=== PATIENT | male | born 1970 | race Two or more races ===

== ENCOUNTER → 2023-07-04 | Emergency (ER) | payer OTHER ==
[~2023-07-04] VITALS: Ht 195.6 cm; Wt 154.2 kg
== END | disposition designated cancer center or children's hospital (05) ==
LOC: ER 16:18
DX: N49.2 Inflammatory disorders of scrotum (principal); R59.0 Localized enlarged lymph nodes; Z20.822 Contact with and (suspected) exposure to COVID-19; Z88.6 Allergy status to analgesic agent; Z88.0 Allergy status to penicillin